=== PATIENT | female | born 1965 | race Caucasian/White ===

== ENCOUNTER 2022-10-26 10:59 | Emergency (ER) | payer MEDICAID ==
[~2022-10-26] VITALS: Ht 154.9 cm; Wt 83.0 kg
[2022-10-26 11:17] VITALS: BP 159/78; PULSE 82; RESP 20; TEMP 98.5; O2SAT 95
[2022-10-26 11:41] VITALS: TEMP 98.5
[2022-10-26 11:42] LABS: BASOPHILS # (AUTO) 0.1 K/uL (0.00-0.22); BASOPHILS % (AUTO) 0.6 % (0.0-2.0); EOSINOPHILS # (AUTO) 0.2 K/uL (0-0.4); EOSINOPHILS % (AUTO) 1.9 % (0.0-4.0); HEMATOCRIT 43.9 % (36-48); HEMOGLOBIN 14.4 g/dL (12.0-16.0); LYMPHOCYTES # (AUTO) 2.7 K/uL (2.5-16.5); LYMPHOCYTES % (AUTO) 24.1 % (20.5-51.1); MEAN CORPUSCULAR HEMOGLOBIN 28 pg (27-31); MEAN CORPUSCULAR HGB CONC 33 g/dL (33-37); MEAN CORPUSCULAR VOLUME 85.8 fL (80-94); MONOCYTES # (AUTO) 0.5 K/uL (0.8-1.0); NEUTROPHILS # (AUTO) 7.8 K/uL (1.8-7.7); NEUTROPHILS % (AUTO) 69.4 % (42.2-75.2); PLATELET COUNT (AUTO) 318 K/uL (140-450); RED BLOOD CELL COUNT(AUTO) 5.11 MIL/uL (4.20-5.40); RED CELL DISTRIBUTION WIDTH 13.9 % (11.6-13.7); WHITE BLOOD COUNT (AUTO) 11.3 K/uL (4.8-10.8)
--- NOTE | 2022-10-26 11:45 | NUR ---
57 Y F PATIENT PRESENTS TO ED WITH NAUSEA, DIZZINESS,GENERALIZED WEAKNESS, SWEATING, VOMMITING, NO CONTACT WITH COVID. PT STATES SHE HAS A HISTORY OF HTN, PRE DM, HIGH CHLOERSTEOL. PT STATES SHE WENT TO URGENT CARE, PT STATES URGENT CARE STATED SHE SOULD COME TO THE ER FOR EVALUATION OF CARDIC MARKERS; SKIN IS PINK/WARM/DRY; AAOX4 WITH EVEN AND STEADY GAIT; LUNGS CLEAR BL; HR EVEN AND REGULAR; PT DENIES ANY FEVER, CP, SOB, OR COUGH AT THIS TIME; PATIENT STATES PAIN OF 0/10 AT THIS TIME; VSS; PATIENT POSITIONED FOR COMFORT; HOB ELEVATED; BEDRAILS UP X2; MARIANNE LIGHT WITH IN REACH. BED DOWN. ER MD MADE AWARE OF PT STATUS. PMHX AMNEMIA HTN PRE DM HIGH CHOLESTERAL NKA
[2022-10-26 11:52] VITALS: O2SAT 95
[2022-10-26] MEDS ORDERED: NACL 0.9% 1,000 ML IV ONE (12:15)
[2022-10-26 12:17] LABS: APPEARANCE,URINE CLEAR (CLEAR); BILIRUBIN,URINE NEGATIVE (NEGATIVE); BLOOD, URINE NEGATIVE (NEGATIVE); COLOR,URINE YELLOW (YELLOW); LEUKOCYTE ESTERASE ,URINE NEGATIVE (NEGATIVE); NITRITE, URINE NEGATIVE (NEGATIVE); UGLUCOSE NEGATIVE (NEGATIVE)
[2022-10-26 12:18] LABS: ANION GAP 11.8 (8-16); CARBON DIOXIDE 29.5 mmol/L (21-32); CREATININE 0.8 mg/dL (0.6-1.3); POTASSIUM 3.3 mmol/L (3.5-5.1)
[2022-10-26] MEDS ORDERED: CETI-25 PO (13:27)
[2022-10-26] MEDS ORDERED: SODIUM PHOS / POTASSIUM PHOS 1 PKT PDR PO SCH (13:35)
[2022-10-26 13:50] VITALS: BP 115/79; PULSE 74; RESP 17; O2SAT 98
--- NOTE | 2022-10-26 13:50 | NUR ---
Patient discharged with v/s stable. Written and verbal after care instructions given and explained. Patient verbalized understanding. Ambulatory with steady gait. All questions addressed prior to discharge. Advised to follow up with PMD.
== END 2022-10-26 13:50 | disposition home or self-care (01) ==
LOC: MED 10:59
DX: R53.1 Weakness (principal); R42 Dizziness and giddiness; R11.2 Nausea with vomiting, unspecified; Z79.899 Other long term (current) drug therapy
CPT/HCPCS: 36415; 71045; 80048; 81003; 84484; 85025; 93005; 96360; 99285; J7030; Q0092